=== PATIENT | male | born 1945 | race Caucasian/White ===

== ENCOUNTER → 2017-10-26 | Outpatient (CLI) | payer MEDICARE, OTHER ==
[~2017-10-26] MED LIST: ACET1TAB38 PO; AMIT50TA PO; ASPI-484 PO; ATOR20TA PO; CEPH250C PO; CHOL100011 PO; CITA40TA5 PO; DIAZ5TAB4 PO; HYDR-3105 PO; MELO15TA24 PO; METO-236 PO; MULT1TAB13 PO; RAMI5CAP37 PO; TAMS0.4C2 PO; TRAZ100T15 PO
== END | disposition home or self-care (01) ==
LOC: SLAB 20:05
PROVIDERS: ATTEND Student in an Organized Health Care Education/Training Program
DX: G47.33 Obstructive sleep apnea (adult) (pediatric) (principal); R06.83 Snoring
CPT/HCPCS: 95810

== ENCOUNTER → 2018-04-04 | Outpatient (CLI) | payer MEDICARE, OTHER ==
[~2018-04-04] MED LIST changes: +TRAZ-131 PO; -TRAZ100T15 PO
--- NOTE | 2018-04-04 10:43 | DIREP ---
PROCEDURE:XRAY SPINE THORACIC 3 VWS COMPARISON:None. INDICATIONS:THORACIC SPINE PAIN TECHNIQUE:AP & lateral views of the thoracic spine and a swimmer's view of the cervicothoracic junction are provided. FINDINGS: ALIGNMENT:Normal. VERTEBRAE:No acute compression fractures are seen. DISK SPACES:Narrowing of the intervertebral disc spaces with mild ventral osteophyte formation. OTHER:Changes of midline sternotomy and CABG. Bipolar pacemaker from the left side. 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 Dictated by: Sylvain Mesa MD on 04/04/2018 at 09:20 AM
--- NOTE | 2018-04-04 11:49 | DIREP ---
PROCEDURE:BONE DENSITY PERIPHERAL INDICATIONS:M54.5 LOW BACK PAIN, M54.6 PAIN IN THORACIC, OSTEOPOROSIS COMPARISON:None. FINDINGS: Proximal right femur bone mineral density (BMD) (g/cm2):0.785 Right Femur T-score (standard deviation relative to young adult mean BMD): -2.2 Right Femur Z-score (standard deviation relative to age-matched control group):-1.0 Proximal left femur bone mineral density (BMD) (g/cm2):0.823 Left Femur T-score (standard deviation relative to young adult mean BMD): -1.9 Left Femur Z-score (standard deviation relative to age-matched control group): -0.7 Lumbar bone mineral density (BMD) (g/cm2): 1.269 Lumbar T-score (standard deviation relative to young adult mean BMD): 0.3 Lumbar Z-score (standard deviation relative to age-matched control group): 0.7 Change since prior exam (%): Femur:Not applicable. Spine:Not applicable. Change since oldest prior exam (%): Femur:Not applicable. Spine:Not applicable. CONCLUSION: Osteopenia Major Osteoporotic 10 Year Fracture Risk = 17.1 % Hip Fracture 10 Year Risk = 5.5 % *Note: The Z-score is provided for informational purposes. The T-score is preferable for clinical decisions. When comparing exams, a change of >4% is considered statistically significant. SUGGESTED RECOMMENDATIONS: Normal & Osteopenia:Consideration should be given to use of calcium supplementation, daily multiple vitamins and adequate exercise, as preventive measures against osteoporosis, if clinically indicated. Osteoporosis & Severe Osteoporosis:In addition to the above, consideration should be given to medical therapy against osteoporosis, if clinically indicated. Dictated by: Moy Barber DO on 04/04/2018 at 11:44 AM
--- NOTE | 2018-04-04 16:20 | DIREP ---
PROCEDURE:US AORTA COMPLETE STUDY COMPARISON:None. INDICATIONS:K43.9 VENTRAL HERNIA, I71.4 ABD AORTIC ANEURYSM, M62.81 MUSCLE WEAKNESS TECHNIQUE:Grayscale ultrasound was performed of the abdominal aorta. Spectral analysis and color-flow are also performed. FINDINGS: PROXIMAL AORTIC DIAMETER (cm):1.8 x 1.5 cmVelocity: 37.2 cm/s MID-AORTIC DIAMETER (cm):1.4 x 1.5 cmVelocity: 29.8 cm/s DISTAL AORTIC DIAMTER (cm):1.6 x 1.3 cmVelocity: 35.2 cm/s RIGHT COMMON ILIAC DIAMETER (cm):2.3 x 1.3 cmVelocity: 53.8 cm/s LEFT COMMON ILIAC DIAMETER (cm):1.7 x 1.4 cmVelocity: 53.8 cm/s CONCLUSION: 1. No abdominal aortic aneurysm. 2. Possible aneurysm of the right common iliac artery. Dictated by: EVIE Physician on 04/04/2018 at 10:39 AM
== END | disposition home or self-care (01) ==
LOC: RAD 08:51
PROVIDERS: ATTEND Internal Medicine
DX: M47.894 Other spondylosis, thoracic region (principal); K43.9 Ventral hernia without obstruction or gangrene; M81.0 Age-related osteoporosis without current pathological fracture; M85.88 Other specified disorders of bone density and structure, other site
CPT/HCPCS: 72072; 76770; 77080

== ENCOUNTER 2021-06-20 21:15 | Emergency (ER) | payer MEDICARE, OTHER ==
[~2021-06-20] VITALS: Ht 175.3 cm; Wt 81.6 kg
[~2021-06-20 21:15] MED LIST changes: -ASPI-484 PO; +ASPI-485 PO; -CITA40TA5 PO; +CITA40TA6 PO; -TRAZ-131 PO; +TRAZ-168 PO
[2021-06-20 21:34] VITALS: BP 173/68
[2021-06-20] MEDS ORDERED: TORADOL IM STA (22:19)
[2021-06-20] MEDS ORDERED: TORADOL ONE (22:29)
[2021-06-20] MEDS ORDERED: CLEOCIN PO STA ×2 (22:30→22:35)
[2021-06-20] MEDS ORDERED: CLEOCIN ONE (22:31)
--- NOTE | 2021-06-20 22:37 | ER.PDOC ---
General Chief Complaint: Toothache Stated Complaint: TOOTH INFECTION Time seen by MD: 22:35 Source: patient Exam Limitations: no limitations History of Present Illness Initial Comments 76-year-old male presents with left lower tooth pain in the posterior molar. Was sent here by his dentist to get a antibiotic and pain shot. Other than pain he denies any other symptoms. No change in voice. Some lymph nodes in his neck that are enlarged. Onset of symptoms 3 days ago Allergies: Coded Allergies: No Known Allergies (Unverified , 12/02/15) Home Meds Reported Medications Acetaminophen With Codeine (TYLENOL-COD #4 TABLET) 1 Each Tablet, 1 EACH PO TID PRN for PAIN, #30 TAB 12/02/15 Diazepam (DIAZEPAM) 5 Mg Tablet, 1 TAB PO BID PRN for PAIN, #60 TAB 12/02/15 Tamsulosin Hcl (TAMSULOSIN HCL) 0.4 Mg Cap.er.24h, 1 CAP PO DAILY, #30 CAP 5 Refills 12/02/15 Hydrocodone Bit/Acetaminophen (NORCO 10-325) 1 Each Tablet, 1 TAB PO BID PRN for PAIN, #60 TAB 12/02/15 Trazodone Hcl (TRAZODONE HCL) 100 Mg Tablet, 1 TAB PO HS, #30 TAB 1 Refill 12/02/15 Meloxicam (MELOXICAM) 15 Mg Tablet, 1 TAB PO DAILY, #30 TAB 2 Refills 12/02/15 Multivitamin W-Minerals/Lutein (CENTRUM SILVER ULTRA MEN'S TAB) 1 Each Tablet, 1 EACH PO DAILY, TABLET 06/16/14 Cholecalciferol (Vitamin D3) (VITAMIN D) 1,000 Unit Capsule, 1000 UNIT PO DAILY, CAPSULE 06/16/14 Aspirin (ASPIR 81) 81 Mg Tablet.dr, 81 MG PO DAILY 06/16/14 Metoprolol Succinate (METOPROLOL SUCCINATE) 25 Mg Tab.er.24h, 25 MG PO HS 06/16/14 Atorvastatin 20MG (LIPITOR 20MG) 20 Mg Tablet, 20 MG PO DAILY, TAB 06/16/14 Citalopram Hydrobromide (CITALOPRAM HBR) 40 Mg Tablet, 40 MG PO DAILY, TABLET 06/16/14 Ramipril 5MG (ALTACE 5MG) 5 Mg Capsule, 5 MG PO BID, CAPSULE 06/16/14 Past Medical History Medical History: cardiac problems, hypertension Surgical History: cholecystectomy, coronary bypass surgery, knee Social History Alcohol Use: none Drug Use: none Constitutional: no symptoms reported Eyes: no symptoms reported Ears: no symptoms reported Nose: no symptoms reported Mouth: see HPI, other (Tooth pain) Throat: no symptoms reported Respiratory: no symptoms reported Cardiovascular: no symptoms reported Gastrointestinal: no symptoms reported Musculoskeletal: no symptoms reported Skin: no symptoms reported Physical Exam General Appearance: alert, no distress Head/Neck: head nml inspection, neck nml inspection Eyes: eyes nml inspection, PERRL Mouth: lips, gums nml, no drooling, widespread dental decay Throat: pharynx nml Respiratory: no resp. distress CVS: reg. rate & rhythm, heart sounds nml Abdomen: non-tender NEURO/PSYCH: oriented X3 Results/Orders Results/Orders Orders - TJ BERG MD Ketorolac Tromethamine (Toradol) (06/20/21 22:19) Ketorolac Tromethamine (Toradol) (06/20/21 22:29) Clindamycin Hcl (Cleocin) (06/20/21 22:30) Clindamycin Hcl (Cleocin) (06/20/21 22:31) Vital Signs Date Time Temp Pulse Resp B/P (MAP) Pulse Ox O2 Delivery O2 Flow Rate FiO2 06/20/21 21:34 98.1 60 16 173/68 (103) 97 Room Air 06/20/21 21:34 98.1 60 16 06/20/21 21:34 98.1 60 16 97 ER DEPART Departure Time of Disposition: 22:36 Disposition: 01 HOME / SELF CARE / HOMELESS Impression: Primary Impression: Dental caries Condition: Stable Patient Instructions: Dental Caries Referrals: ELSY MILES MD (PCP) PRIMARY CARE PROVIDER Duration or Time Spent with Pa: 10 TJ BERG MD Jun 20, 2021 22:36
[2021-06-20 22:42] VITALS: BP 164/85
== END 2021-06-20 22:42 | disposition home or self-care (01) ==
LOC: ER 21:15
DX: K02.9 Dental caries, unspecified (principal); I10 Essential (primary) hypertension; Z79.1 Long term (current) use of non-steroidal anti-inflammatories (NSAID); Z79.82 Long term (current) use of aspirin; Z79.899 Other long term (current) drug therapy; Z90.49 Acquired absence of other specified parts of digestive tract
CPT/HCPCS: 96372; 99283; J1885

== ENCOUNTER → 2021-08-27 | Outpatient (CLI) | payer MEDICARE, OTHER ==
[~2021-08-27] MED LIST changes: -ACET1TAB38 PO; +ACET1TAB63 PO
--- NOTE | 2021-08-27 16:05 | DIREP ---
PROCEDURE:CT - LUMBAR SPINE WITH AND WITHOUT CONTRAST COMPARISON:None. INDICATIONS:LUMBOSACRAL SPONDYLOSIS WO MYELOPATHY TECHNIQUE:Multi-planar CT images of the lumbar spine were obtained without and with IV contrast. FINDINGS: BONES:Normal vertebral body height. Diffuse anterior and lateral disc osteophyte complex formation. Moderate loss of disc height at the L4-5 level. No abnormal enhancement. ALIGNMENT:3 mm anterolisthesis of L3 on L4. PARASPINAL AREA:Aortic atherosclerosis. LUMBAR DISC LEVELS: T12-L1:Mild bilateral facet arthrosis. L1-L2:No significant disc/facet abnormality, spinal stenosis, or foraminal stenosis. L2-L3:Moderate bilateral facet arthrosis. Broad-based posterior disc osteophyte complex. Severe right and mild left neural foraminal narrowing. L3-L4:Severe bilateral facet arthrosis. Unroofing the posterior disc with additional protrusions. Mild to moderate bilateral neural foraminal narrowing. L4-L5:Moderate bilateral facet arthrosis. Broad-based posterior disc osteophyte complex. Moderate to severe left and moderate right neural foraminal narrowing. L5-S1:Severe bilateral facet arthrosis. CONCLUSION:Multilevel degenerative and discogenic changes, with multilevel neural foraminal narrowing as above. No abnormal enhancement. Dictated by: Shelley Arora M.D. on 08/27/2021 at 04:00 PM
== END | disposition home or self-care (01) ==
LOC: RAD 14:19
PROVIDERS: ATTEND Pain Medicine Pain Medicine
DX: M47.817 Spondylosis without myelopathy or radiculopathy, lumbosacral region (principal); M48.061 Spinal stenosis, lumbar region without neurogenic claudication
CPT/HCPCS: 36415; 72133; 82565; Q9967

== ENCOUNTER → 2021-12-09 | Outpatient (CLI) | payer MEDICARE, OTHER ==
[~2021-12-09] MED LIST changes: +KENALOG-40 IJ ONE; +XYLOCAINE 2% 5ML VIAL IJ ONE
--- NOTE | 2021-12-09 14:22 | DIREP ---
PROCEDURE:FLUOROSCOPIC GUIDANCE NEEDLE PLACEMENT COMPARISON:None. INDICATIONS:LEFT HIP OA, 2cc Omni 240, 6cc Lido 2%- 1cc Kenalog 40, 1 image, 75.164 mGy, 126s Fluoro TECHNIQUE:After explaining the risks, benefits, and alternatives, both oral and written informed consent was obtained from the patient for fluoroscopically-guided hip steroid injection. The patient's left hip area was sterilely prepped and draped. The proposed needle tract was anesthetized with 1% lidocaine solution. Under fluoroscopic guidance, a 22 gauge spinal needle was advanced into the left hip joint. A small amount of contrast was injected confirm positioning. A mixture of 6 cc 2% lidocaine, and 1 cc of Kenalog 40 was injected into the hip joint. The needle was then removed. The patient experienced no postprocedural complication. Total fluoroscopy time 120 seconds. FINDINGS:Imaging documents needle placement and injection of the left femoral head and anatomic neck. CONCLUSION:Fluoroscopic-guided right hip joint injection. Dictated by: Jayme Colby M.D. on 12/09/2021 at 02:20 PM
== END | disposition home or self-care (01) ==
LOC: RAD 10:30
PROVIDERS: ATTEND Orthopaedic Surgery
DX: M16.12 Unilateral primary osteoarthritis, left hip (principal)
CPT/HCPCS: 20610; 77002; J3301; J2001; Q9966

== ENCOUNTER 2022-03-08 06:07 | Day surgery (SDC) | payer MEDICARE, OTHER ==
[~2022-03-08] VITALS: Ht 175.3 cm; Wt 83.5 kg
[~2022-03-08 06:07] MED LIST changes: -KENALOG-40 IJ ONE; -XYLOCAINE 2% 5ML VIAL IJ ONE
[2022-03-08 06:19] VITALS: BP 132/69
[2022-03-08] MEDS ORDERED: HNS 1000ML 1,000 ML IV SCH (06:30)
[2022-03-08] MEDS ORDERED: VALIUM PO ONE (06:30)
[2022-03-08 06:39] LABS: BASOPHIL % 0.5 % (0.0-0.2); EOSINOPHIL # 0.1 10^3/uL (0.0-0.2); EOSINOPHIL % 1.4 % (0.0-5.0); LYMPHOCYTES # 1.26 10^3/uL1 (1.0-4.8); LYMPHOCYTES % 19.1 % (24.0-44.0); MEAN CORP HGB 36.4 pg (26-34); MONOCYTES # 0.7 10^3/uL (0.3-0.8); MONOCYTES % 10.9 % (5.0-12.0); NEUTROPHIL # 4.5 10^3/uL (1.8-7.7); NEUTROPHILS % 67.9 % (41.0-85.0)
[2022-03-08] MEDS ORDERED: METO25TA4 PO (06:53)
[2022-03-08] MEDS ORDERED: LEVO25CA4 PO (06:57)
[2022-03-08 06:58] LABS: CARBON DIOXIDE 27.1 mmol/L (20.0-32)
[2022-03-08] MEDS ORDERED: PANT40TA3 PO (06:58)
[2022-03-08] MEDS ORDERED: TRAM50TA PO (06:58)
[2022-03-08] MEDS ORDERED: XYLOCAINE ONE (07:18)
[2022-03-08] MEDS ORDERED: SODIUM CHLORIDE IRR BOTTLE IR ONE (07:18)
[2022-03-08] MEDS ORDERED: ISOTON GENTAMICIN 80 MG/50 ML 50 ML IV ONE (07:18)
[2022-03-08] MEDS ORDERED: DIPRIVAN IV ONE (07:25)
[2022-03-08] MEDS ORDERED: XYLOCAINE 2% 5ML VIAL ONE (07:25)
[2022-03-08] MEDS ORDERED: VANCOMYCIN HCL 1 GM in NS 250ML 250 ML IV ONE (07:30)
[2022-03-08] MEDS ORDERED: NS 250ML 250 ML ONE (07:39)
[2022-03-08] MEDS ORDERED: VANCOMYCIN HCL 1 GM ONE (07:39)
[2022-03-08] MEDS ORDERED: HNS 1000ML 1,000 ML ONE (07:39)
[2022-03-08] MEDS ORDERED: VALIUM ONE (07:40)
--- NOTE | 2022-03-08 08:07 | PCM.EKG ---
[facility] Test Date: 2022-03-08 Test Time: 06:35:47 Pat Name: JAVAD MEDINA Department: Room: Gender: M Fruit Farmer: YOANDY YOUSIF : 1945 Requested By: ELSY LEWIS Order Number: [id number] Reading MD: Elsy Lewis Measurements Intervals [place] Rate: 43 P: 52 AK: 170 QRS: 47 QRSD: 88 T: 57 QT: 488 QTc: 412 Interpretive Statements Marked sinus bradycardia No previous ECG available for comparison Electronically Signed On 03-09-2022 8:14:53 [employer] SUPERVISOR by Elsy Lewis Please click the below link to view image of tracing.
[2022-03-08 08:22] VITALS: BP 147/80
[2022-03-08 08:37] VITALS: BP 145/74
[2022-03-08 08:52] VITALS: BP 141/63
--- NOTE | 2022-03-08 09:51 | OPH ---
DATE OF SURGERY: 03/08/2022 DICTATOR NAME: Jodee Lewis MD PERMANENT PACEMAKER OPERATIVE REPORT PREOPERATIVE DIAGNOSIS: Pacer malfunction, early EOL of pulse generator with battery depletion and device going into VVI, rate 40 backup mode. POSTOPERATIVE DIAGNOSIS: Pacer malfunction, early EOL of pulse generator with battery depletion and device going into VVI, rate 40 backup mode. PREOPERATIVE MEDICATIONS: Valium 2.5 mg p.o., fentanyl 25 mcg Iv. ANTIBIOTIC PROPHYLAXIS: Vancomycin 1 gram IV piggyback during the procedure. DEVICE EXPLANTED: [employer]urity [employer] device, serial #[id number], which was implanted on 07/22/2015. NEW DEVICE IMPLANTED: [employer] serial number [id number] in the left pectoral subcutaneous region. Chronic leads are right atrial [employer] lead model 2088TC 46 cm, serial number [id number]. Right ventricular lead is a [employer] serial number [id number] 52 cm lead. NARRATION OF PROCEDURE: After premedication and complete surgical asepsis, the patient was draped in the operating room after obtaining consent and 2% local anesthesia was instilled in the subcutaneous region over the existing device pocket in the left subpectoral region. Incision was made and dissection of the skin, subcutaneous tissue and the capsule of the device was done. The old device was extracted from the pocket. It was explanted from the pocket and both leads were disconnected. They were both connected to the new device and measurements were done. All measurements appeared to be in good numbers with right atrial P-wave. The lead was showing 2 millivolts with an impedance of 427 ohms with 0.5 volt threshold at 0.4 milliseconds, right ventricle was showing 8-11 millivolt R-wave with impedance of 527 ohms with 0.5 volt, threshold at 0.4 milliseconds. Device was programmed to DDD mode with MVP mode attached at 3.5 volts amplitude both in the atrium and the ventricle, pulse width 0.4 milliseconds, both in the atrium and ventricle. Atrial sensitivity set at 0.3 millivolts, ventricular sensitivity set at 2.8 millivolts with bipolar pacing and sensing mode, the lower rate was 60, upper tracking rate was 120 beats per minute, upper activity rate was 130 beats per minute, paced AV interval of 180 milliseconds, sensed AV delay was 160 milliseconds and the MVP mode was turned on. Rate adaptive AV delay was turned off. Subsequently, the device was kept in the pocket. Garamycin irrigation of the pocket was done before that and the pocket was closed with interrupted subcutaneous sutures followed by application of metal everette to the skin. We will give him Keflex 500 mg 3 times a day for 6 days and have wound check in the next 5 days. No complications of the procedure. Jodee Lewis MD DR: ADONIS TID: [id number] RECEIPT: [id number]
== END 2022-03-08 09:08 | disposition home or self-care (01) ==
LOC: SURG 06:07
PROVIDERS: ATTEND Specialist
DX: I49.5 Sick sinus syndrome (principal); T82.111A Breakdown (mechanical) of cardiac pulse generator (battery), initial encounter; I11.0 Hypertensive heart disease with heart failure; I50.32 Chronic diastolic (congestive) heart failure; F41.9 Anxiety disorder, unspecified; I25.10 Atherosclerotic heart disease of native coronary artery without angina pectoris; E66.9 Obesity, unspecified; E78.5 Hyperlipidemia, unspecified; F32.A Depression, unspecified; M19.90 Unspecified osteoarthritis, unspecified site; Z79.82 Long term (current) use of aspirin; Z79.899 Other long term (current) drug therapy; Z79.01 Long term (current) use of anticoagulants; Z79.890 Hormone replacement therapy; Z86.16 Personal history of COVID-19; Z95.1 Presence of aortocoronary bypass graft; Z98.890 Other specified postprocedural states; Z90.49 Acquired absence of other specified parts of digestive tract; Z68.27 Body mass index [BMI] 27.0-27.9, adult; Y83.8 Other surgical procedures as the cause of abnormal reaction of the patient, or of later complication, without mention of misadventure at the time of the procedure
CPT/HCPCS: 33228; 80053; 85025; 36415; 93005; J7050 ×2; J7030; A4649; A4217; J3490; J2001 ×2; J3370 ×2; C1785

== ENCOUNTER → 2022-05-12 | Outpatient (CLI) | payer MEDICARE, OTHER ==
[~2022-05-12] MED LIST changes: +AMOX1TAB12 PO; +ATOR40TA PO; +KEFLEX PO; +LEVO25CA4 PO; +METO25TA4 PO; +PANT40TA3 PO; +TRAM50TA PO
[2022-05-12 14:12] LABS: MEAN CORP HGB 36.1 pg (26-34); RED CELL DISTRIBUTION WIDTH 12.1 % (11.5-14.5)
[2022-05-12 14:36] LABS: CARBON DIOXIDE 30.7 mmol/L (20.0-32)
== END | disposition home or self-care (01) ==
LOC: LAB 13:46
PROVIDERS: ATTEND Specialist
DX: T82.7XXA Infection and inflammatory reaction due to other cardiac and vascular devices, implants and grafts, initial encounter (principal); X58.XXXA Exposure to other specified factors, initial encounter
CPT/HCPCS: 36415; 80053; 84145; 85027; 85651; 86140